=== PATIENT | female | born 1950 | race Caucasian/White ===

== ENCOUNTER → 2021-11-17 11:32 | Outpatient (BNVA) | payer MEDICARE, SELFPAY | PROVIDERS: PCP Family Medicine; Visit Provider Surgery Vascular Surgery | DX: I72.3 Aneurysm of iliac artery (principal) | CPT/HCPCS: 99202 ==

== ENCOUNTER 2022-02-09 10:19 | Outpatient (REF) | payer MEDICARE, SELFPAY ==
--- NOTE | ~2022-02-09 | US_ITS ---
EXAMINATION: US RETROPERITONEAL LIMITED (AORTA) CLINICAL INFORMATION: Aneurysm of the iliac artery. COMPARISON: None TECHNIQUE: [place]-scale, color Doppler and spectral Doppler evaluation of the abdominal aorta. FINDINGS: There is atherosclerotic disease. The measurements of the aorta in maximum AP and transverse dimensions respectively are as follows: Proximal: 3.0 x 2.6 cm. Mid: 1.8 x 2.2 cm. Distal: 1.8 x 2.5 cm. PSV: 46.7 cm/s. The measurements of the common iliac arteries in maximum AP and TRV dimensions are as follows: Right Common Iliac Artery: 2.3 x 2.3 cm. Left Common Iliac Artery: 1.6 x 1.8 cm. US/US abdominal aortic aneurysm IMPRESSION: No abdominal aortic aneurysm. 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
== END 2022-02-09 10:20 | disposition home or self-care (01) ==
LOC: HO.US 10:19
PROVIDERS: Visit Provider Surgery Vascular Surgery
DX: I72.3 Aneurysm of iliac artery (principal)
CPT/HCPCS: 76706

== ENCOUNTER → 2022-02-16 10:19 | Outpatient (BNVA) | payer MEDICARE, SELFPAY | PROVIDERS: PCP Student in an Organized Health Care Education/Training Program; Visit Provider Surgery Vascular Surgery | DX: I72.3 Aneurysm of iliac artery (principal) | CPT/HCPCS: 99212 ==

== ENCOUNTER 2023-02-01 08:52 | Outpatient (REF) | payer MEDICARE, SELFPAY ==
--- NOTE | ~2023-02-01 | US_ITS ---
EXAMINATION: US RETROPERITONEAL LIMITED (AORTA) CLINICAL INFORMATION: Aneurysm of the iliac artery. COMPARISON: Ultrasound aorta 02/09/2022. TECHNIQUE: [place]-scale, color Doppler and spectral Doppler evaluation of the abdominal aorta. FINDINGS: Atherosclerotic aorta. The measurements of the aorta in maximum AP and transverse dimensions respectively are as follows: Proximal: 2.7 x 2.6 cm. Mid: 1.9 x 2.4 cm. Distal: 2.5 x 2.7 cm. PSV: 97 cm/s. The measurements of the common iliac arteries in maximum AP and TRV dimensions are as follows: Right Common Iliac Artery: 2.4 x 2.1 cm, previously measuring 2.3 x 2.3. The lumen measures 1.6 x 2.0 cm. Left Common Iliac Artery: 1.5 x 1.5 cm. US/US abdominal aortic aneurysm IMPRESSION: Stable right common iliac artery aneurysm measuring 2.4 x 2.1 cm compared to 2.3 x 2.3 cm.
== END 2023-02-01 08:53 | disposition home or self-care (01) ==
LOC: HO.US 08:52
PROVIDERS: PCP Student in an Organized Health Care Education/Training Program; Visit Provider Surgery Vascular Surgery
DX: I72.3 Aneurysm of iliac artery (principal); I71.40 Abdominal aortic aneurysm, without rupture, unspecified
CPT/HCPCS: 76706

== ENCOUNTER 2023-03-29 12:48 | Outpatient (AMB) | payer MEDICARE, SELFPAY ==
[2023-03-29 12:56] VITALS: BP 128/72; PULSE 74; O2SAT 100; BMI 20.1
--- NOTE | 2023-03-29 12:56 | A.OFFVIS_ITS ---
Intake Vital Signs 03/29/23 12:56 Height 5 ft 4 in Weight 117 lb BMI 20.1 BP 128/72 Blood Pressure Location Rt brachial Position Sitting Pulse 74 Pulse Source Pulse Oximeter Pulse Oximetry (%) 100 Oxygen Delivery Method Room Air Intake Visit Reasons: needs 1 yr follow up AAA s/p Abd Aorta US Intake Note: Pt presents to the office today for a 1 year follow up AAA. Pt states she is feeling well. Pt states she is more tired lately. Allergies No Known Allergies Allergy (Verified 03/29/23 12:59) HPI needs 1 yr follow up AAA s/p Abd Aorta US HPI Details Very pleasant 72-year-old female presents for follow-up regarding aneurysm of her iliac artery it was worked up for incidental finding on her liver function tests. She did eventually discover she had Lyme disease. She has been for following up with this for the last 2 years in appears to be doing relatively well. She reports no changes. She is now for follow-up with noninvasive testing [facility], [facility] Social History (Updated 03/29/23 @ 12:59 by Aaliyah Santa MA) Alcohol intake: current Alcohol intake frequency: a few times a week Alcohol type: wine Patient Tobacco Use Status: Never used Tobacco Review of Systems Const All systems reviewed & are unremarkable except as noted in HPI and below Reports no additional complaints ENT Reports Normal hearing present Card Denies chest pain, Denies chest pain at rest, Denies chest pain with activity and Denies pedal edema Resp Denies cough GI Denies abdominal pain Musc Denies abnormal gait, Denies muscle cramps and Denies radiating pain into limb Skin/Breast Denies skin ulcer and Denies wounds Neuro Reports Normal hearing present and Denies abnormal gait Psych Reports no additional complaints Physical Exam Vital Signs: Last Vital Signs Pulse 74 03/29/23 12:56 BP 128/72 03/29/23 12:56 Pulse Ox 100 03/29/23 12:56 Oxygen Delivery Method Room Air 03/29/23 12:56 BMI result Body Mass Index 20.1 Const General: cooperative, healthy appearing and comfortable Orientation/consciousness: oriented to person, oriented to place and oriented to time HEENT Head: Yes normal to inspection Neck Neck: Yes normal visual inspection Carotids: no bruits Chest Chest palpation & inspection: normal inspection of the chest Resp Effort & Inspection: normal respiratory effort and able to speak in complete sentences Auscultation: clear to auscultation bilaterally, no crackles, no rales, no rhonchi and no wheezes Cardio Rate: regular rate Rhythm: regular rhythm Heart sounds: S1 normal heart sound present and S2 normal heart sound present Bruits: no carotid bruits Peripheral pulses: Peripheral pulses 2+ throughout GI Inspection: Yes normal to inspection Skin Wounds: no wounds Hair: normal Neuro General: oriented to person, oriented to place and oriented to time Cranial nerves: Yes CN's II-XII intact bilaterally and Yes Normal hearing present Cognition (Neuro): normal cognition Motor exam (neuro): 5/5 motor strength present throughout Extrem Other: venous exam: No significant superficial varicosities or spider telangiectasias, minimal edema General: No clubbing, No cyanosis and No edema Psych Appearance: grossly normal Mental Status: mental status grossly normal Speech and movement: Normal speech and movement present Results Reviewed Results Reviewed: Testing dated 02/01/2023 demonstrates right common iliac aneurysm measuring 2.4 x 2.1 cm. Assessment & Plan Assessment & Plan (1) Aneurysm of right common iliac artery: Code(s): I72.3 - Aneurysm of iliac artery Plan: In short patient has a stable right iliac artery aneurysm. I do believe it is within the same range as prior studies. We did discuss routine risk factor modification. In addition the patient will follow up with us in approximately 1 year's time with surveillance ultrasound. Thank you for allowing us to assist in her care. If there are any questions or concerns please do not hesitate to contact us. Orders: Orders US abdominal aortic aneurysm 364 Days I72.3 - Aneurysm of iliac artery Coding Level of Care Code Est Pt Level 4 (10305) Diagnoses Aneurysm of right common iliac artery I72.3
== END 2023-03-29 13:30 | disposition home or self-care (01) ==
PROVIDERS: PCP Student in an Organized Health Care Education/Training Program; Visit Provider Surgery Vascular Surgery
DX: I72.3 Aneurysm of iliac artery (principal)
CPT/HCPCS: 99213

== ENCOUNTER → 2023-03-29 12:48 | Outpatient (BNVA) | payer MEDICARE, SELFPAY | PROVIDERS: PCP Student in an Organized Health Care Education/Training Program; Visit Provider Surgery Vascular Surgery | DX: I72.3 Aneurysm of iliac artery (principal) | CPT/HCPCS: 99212 ==

== ENCOUNTER 2024-03-28 10:16 | Outpatient (REF) | payer MEDICARE, SELFPAY ==
--- NOTE | ~2024-03-28 | US_ITS ---
EXAMINATION: US RETROPERITONEAL LIMITED (AORTA) CLINICAL INFORMATION: Follow-up RIGHT common iliac aneurysm. COMPARISON: Ultrasound abdominal aorta 02/01/2023, 02/09/2022. TECHNIQUE: [place]-scale, color Doppler and spectral Doppler evaluation of the abdominal aorta. FINDINGS: Atherosclerotic plaque, ectatic distal abdominal aorta. Possible nutcracker syndrome should be evaluated with dedicated imaging with vascular CT scan. The measurements of the aorta in maximum AP and transverse dimensions respectively are as follows: Proximal: 2.6 x 2.5 cm, previously 2.7 x 2.6 cm Mid: 1.9 x 2.1 cm, previously 1.9 x 2.4 cm . Distal: 2.5 x 2.7 cm, previously 2.5 x 2.7 cm PSV 101.9 cm/s, previously 97 cm/s The measurements of the common iliac arteries in maximum dimensions are as follows: Right: AP: 2.3 cm. TRV: 2.2 cm, previously 2.4 x 2.1 cm Left: AP: 1.6 cm. TRV: 1.6 cm, previously 1.5 x 1.5 cm US/US abdominal aortic aneurysm IMPRESSION: 1. RIGHT common iliac artery aneurysm measures 2.3 x 2.2 cm with lumen measuring 1.5 x 1.8 cm, previously 2.4 x 2.1 cm on 02/01/2023 and 2.3 x 2.3 cm on 02/09/2022. 2. Atherosclerotic plaque, ectatic distal abdominal aorta. 3. Possible nutcracker syndrome should be evaluated with dedicated imaging with vascular CT scan. Electronically signed by: Ana Paula Doll MD 03/31/2024 02:41 PM EST
== END 2024-03-28 10:17 | disposition home or self-care (01) ==
LOC: HO.US 10:16
PROVIDERS: PCP Student in an Organized Health Care Education/Training Program; Visit Provider Surgery Vascular Surgery
DX: I72.3 Aneurysm of iliac artery (principal)
CPT/HCPCS: 76706

== ENCOUNTER 2024-04-10 09:54 | Outpatient (AMB) | payer MEDICARE, SELFPAY ==
[2024-04-10 09:59] VITALS: BMI 20.1
--- NOTE | 2024-04-10 09:59 | MHC.OFFVIS ---
Vital Signs 04/10/24 09:59 Height 5 ft 4 in Weight 117 lb BMI 20.1 Intake Visit Reasons: Follow Up 03/28 Abd US Intake Note: 1 yr follow up AAA s/p Abd US 03/28/24 Accompanied by: Self / Same As Patient Allergies No Known Allergies Allergy (Verified 04/10/24 10:00) HPI HPI Follow Up 03/28 Abd US: Details: Very pleasant 73-year-old female presents for follow-up regarding aneurysm of her iliac and abdominal aorta aneurysms. This initially began as a workup for Lyme disease. She had an ultrasound to evaluate the liver and it was noted this appeared to be nearly 2 years ago. She has been seeing us on an annual basis. She has had no interval changes in his doing quite well. Of note she is a nonsmoker nondiabetic. [facility], [facility] Social History Alcohol intake: current Alcohol intake frequency: a few times a week Alcohol type: wine Patient Tobacco Use Status: Never used Tobacco Review of Systems Const All systems reviewed & are unremarkable except as noted in HPI and below Reports no additional complaints ENT Reports Normal hearing present Card Denies chest pain, Denies chest pain at rest, Denies chest pain with activity and Denies pedal edema Resp Denies cough GI Denies abdominal pain Musc Denies abnormal gait, Denies muscle cramps and Denies radiating pain into limb Skin/Breast Denies skin ulcer and Denies wounds Neuro Reports Normal hearing present and Denies abnormal gait Psych Reports no additional complaints Physical Exam Vital Signs: BMI result Body Mass Index 20.1 Const General: cooperative, healthy appearing and comfortable Orientation/consciousness: oriented to person, oriented to place and oriented to time HEENT Head: Yes normal to inspection Neck Neck: Yes normal visual inspection Carotids: no bruits Chest Chest palpation & inspection: normal inspection of the chest Resp Effort & Inspection: normal respiratory effort and able to speak in complete sentences Auscultation: clear to auscultation bilaterally, no crackles, no rales, no rhonchi and no wheezes Cardio Rate: regular rate Rhythm: regular rhythm Heart sounds: S1 normal heart sound present and S2 normal heart sound present Bruits: no carotid bruits Peripheral pulses: Peripheral pulses 2+ throughout GI Inspection: Yes normal to inspection Skin Wounds: no wounds Hair: normal Neuro General: oriented to person, oriented to place and oriented to time Cranial nerves: Yes CN's II-XII intact bilaterally and Yes Normal hearing present Cognition (Neuro): normal cognition Motor exam (neuro): 5/5 motor strength present throughout Extrem Other: venous exam: No significant superficial varicosities or spider telangiectasias, minimal edema General: No clubbing, No cyanosis and No edema Psych Appearance: grossly normal Mental Status: mental status grossly normal Speech and movement: Normal speech and movement present Results Reviewed Results Reviewed: Noninvasive testing dated 03/28/2024 demonstrates right iliac measuring 2.3 cm maximal aorta is 2.6 cm written report and images were reviewed. Assessment & Plan Assessment & Plan (1) Aneurysm of right common iliac artery: Code(s): I72.3 - Aneurysm of iliac artery Category: Medical Plan: In short patient has a stable iliac artery aneurysm. At the current time she has no risk factors and it has been stable for 3 years on surveillance ultrasounds. I did discuss these findings with the patient and recommend no further studies or evaluation. She is in agreement and she will follow up with us on an as-needed basis. Thank you for allowing us to assist in her care. Coding Level of Care Code Est Pt Level 4 (74846) Diagnoses Aneurysm of right common iliac artery I72.3
== END 2024-04-10 10:20 | disposition home or self-care (01) ==
PROVIDERS: PCP Student in an Organized Health Care Education/Training Program; Visit Provider Surgery Vascular Surgery
DX: I72.3 Aneurysm of iliac artery (principal)
CPT/HCPCS: 99214

== ENCOUNTER → 2024-04-10 09:54 | Outpatient (BNVA) | payer MEDICARE, SELFPAY | PROVIDERS: PCP Student in an Organized Health Care Education/Training Program; Visit Provider Surgery Vascular Surgery | DX: I72.3 Aneurysm of iliac artery (principal) | CPT/HCPCS: 99212 ==